=== PATIENT | female | born 1990 | race Caucasian/White ===

== ENCOUNTER 2022-03-14 12:08 | Day surgery (SDC) | payer OTHER ==
[2022-03-13 13:19] VITALS: BMI 42.7
[2022-03-14] MEDS ORDERED: Bupivacaine PF 0.5% 30 ML VIAL ONE (12:20)
[2022-03-14] MEDS ORDERED: Neomycin-Polymyxin 1 ML AMP ONE (12:20)
[2022-03-14] MEDS ORDERED: Lidocaine 1% MPF 2 ML VIAL ONE (12:35)
[2022-03-14] MEDS ORDERED: Fentanyl 100 MCG/2 ML VIAL ONE (12:48)
[2022-03-14] MEDS ORDERED: PROPOFOL 20 ML ONE (12:48)
[2022-03-14] MEDS ORDERED: Midazolam HCl 2 mg/2 ml Vial ONE (12:48)
[2022-03-14] MEDS ORDERED: Ketorolac Tromethamine 30 MG/ML VIAL ONE ×2 (12:49)
[2022-03-14] MEDS ORDERED: Ondansetron PF 4 MG/2 ML Vial ONE (12:49)
[2022-03-14] MEDS ORDERED: Lidocaine 1% PF 5 ML VIAL ONE (12:49)
[2022-03-14] MEDS ORDERED: Dexamethasone 20 MG/5 ML VIAL ONE (12:49)
[2022-03-14] MEDS ORDERED: CEFAZOLIN 2 GM VIAL ONE (12:49)
[2022-03-14] MEDS ORDERED: Glycopyrrolate 0.2 MG/ML 5 ML SYRINGE ONE (12:57)
== END 2022-03-14 14:55 | disposition home or self-care (01) ==
LOC: CSHSDC 12:08
PROVIDERS: ATTEND Podiatrist Foot & Ankle Surgery
PROC: 0JNR0ZZ Release Left Foot Subcutaneous Tissue and Fascia, Open Approach (ICD-10-PCS; principal; 2022-03-14)
DX: M72.2 Plantar fascial fibromatosis (principal); R73.03 Prediabetes; Z79.51 Long term (current) use of inhaled steroids; Z79.899 Other long term (current) drug therapy
CPT/HCPCS: J0690; J1100; J1885; J2250; J2405; J2704; J3010; S0020

== ENCOUNTER 2022-03-28 13:18 | Outpatient (CLI) | payer OTHER | END 2022-03-28 13:19 | disposition home or self-care (01) | LOC: CSHMRI 13:18 | PROVIDERS: ATTEND Nurse Practitioner Family | DX: M54.16 Radiculopathy, lumbar region (principal); N39.42 Incontinence without sensory awareness | CPT/HCPCS: 72148 ==

== ENCOUNTER 2023-02-20 10:04 | Outpatient (CLI) | payer OTHER | END 2023-02-20 10:05 | disposition home or self-care (01) | LOC: CSHNM 10:04 | PROVIDERS: ATTEND Internal Medicine | DX: R10.10 Upper abdominal pain, unspecified (principal); R11.2 Nausea with vomiting, unspecified | CPT/HCPCS: 78227; A9537 ==